=== PATIENT | female | born 1985 | race Caucasian/White ===

== ENCOUNTER 2018-10-13 21:02 | Emergency (ER) | payer SELFPAY ==
[~2018-10-13] VITALS: Ht 167.6 cm; Wt 63.5 kg
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
--- NOTE | 2018-10-13 21:30 | NUR ---
ER PA AT BEDSIDE FOR EVALUATION
[2018-10-13] MEDS ORDERED: OLANZAPINE 10 MG VIAL IM ONE ×2 (21:48→22:00)
--- NOTE | 2018-10-13 21:50 | NUR ---
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
[2018-10-13 22:00] LABS: BASOPHILS % (AUTO) 0.8 % (0.0-2.0); EOSINOPHILS % (AUTO) 1.2 % (0.0-6.0); HEMATOCRIT 37 % (33-45); HEMOGLOBIN 12.4 g/dL (11.5-14.8); LYMPHOCYTES # (AUTO) 1.8 /CMM (0.8-4.8); LYMPHOCYTES % (AUTO) 31.1 % (20.0-44.0); MEAN CORPUSCULAR HGB CONC 33 g/dl (31.0-36.0); MEAN CORPUSCULAR VOLUME 95 fL (82-100); MONOCYTES # (AUTO) 0.6 /CMM (0.1-1.30); MONOCYTES % (AUTO) 9.7 % (2.0-12.0); NEUTROPHILS # (AUTO) 3.3 /CMM (1.8-8.9); NEUTROPHILS % (AUTO) 57.2 % (43.0-81.0); PLATELET COUNT (AUTO) 160 /CMM (150-450); WHITE BLOOD COUNT (AUTO) 5.8 K/uL (4.3-11.0)
[2018-10-13 22:07] LABS: CALCIUM, SERUM 8.8 mg/dL (8.5-10.1); CARBON DIOXIDE 28 mmol/L (21-32); CHLORIDE 108 mmol/L (98-107); CREATININE 0.8 mg/dL (0.6-1.3); GLUCOSE 93 mg/dL (74-106); POTASSIUM 3.1 mmol/L (3.5-5.1); SODIUM SERUM 144 mmol/L (136-145); UREA NITROGEN, BLOOD 10 mg/dL (7-18)
[2018-10-13 22:13] LABS: ALANINE AMINOTRANSFERASE 57 U/L (12-78); ALBUMIN 3.6 g/dL (3.4-5.0); ALCOHOL, BLOOD < 3 mg/dL (0-0); ALKALINE PHOSPHATASE 81 U/L (46-116); ASPARTATE AMINOTRANSFERASE 42 U/L (15-37); BILIRUBIN,DIRECT 0.2 mg/dL (0.0-0.2); BILIRUBIN,TOTAL 0.7 mg/dL (0.2-1.0); TOTAL PROTEIN, SERUM 7.2 g/dL (6.4-8.2)
[2018-10-13 22:15] LABS: ACETAMINOPHEN 0 ug/ml (10-30); SALICYLATE 1.6 mg/dL (2.8-20.0)
[2018-10-13] MEDS ORDERED: POTASSIUM CHLORIDE 20 MEQ TAB.PRT.SR PO ONE ×2 (22:30→22:55)
--- NOTE | 2018-10-13 23:04 | NUR ---
PATIENT MEDICALLY CLEARED FOR BOOKING/DISCHARGE. ABLE TO AMBULATE WITH STEADY GAIT. [employer] AT BEDSIDE
[2018-10-13 23:06] VITALS: BP 137/87
== END 2018-10-13 23:07 ==
LOC: ER 21:05
DX: F29 Unspecified psychosis not due to a substance or known physiological condition (principal); E87.6 Hypokalemia; R45.1 Restlessness and agitation
CPT/HCPCS: 36415; 80048; 80076; 80307; 80329; 84702; 85025; 96372; 99284; G0480; J3490